=== PATIENT | female | born 1970 | race Caucasian/White ===

== ENCOUNTER 2019-02-07 11:21 | Day surgery (SDC) | payer BC ==
[~2019-02-07 11:21] MED LIST: Lactated Ringers 1,000 ML IV SCH
[2019-02-07] MEDS ORDERED: Propofol 200 MG/20 ML SDV ONE ×2 (11:25→12:43)
[2019-02-07] MEDS ORDERED: fentaNYL 100 MCG/2 ML SDV ONE (11:25)
--- NOTE | 2019-02-07 13:49 | OR ---
PREOPERATIVE DIAGNOSIS: Screening colonoscopy. POSTOPERATIVE DIAGNOSIS: Tiny high rectal nodule, probably hyperplastic polyp, removed. PROCEDURE PROPOSED: Total flexible colonoscopy. PROCEDURE DONE: Total flexible colonoscopy with cold biopsy forceps polypectomy x1. INDICATION: This is a 48-year-old female, recommended to come in for a screening colonoscopy. She denies any symptomatology. There is a questionable history of mother having had polyps, but she was not sure if they were precancerous or not. TECHNIQUE: The patient WAS brought to the endoscopy suite, placed in left lateral decubitus position. She was sedated per [employer] with propofol. The flexible video colonoscope was then passed transanally and under visualization advanced to the cecum. Examination revealed a normal ascending, transverse, descending, and sigmoid colon. In the sigmoid rectal junction, there was a tiny polyp removed with 1 bite of the cold biopsy forceps and submitted for pathologic examination. The remainder of the rectum was normal. The patient tolerated the procedure well. FINAL IMPRESSION: Tiny high rectal polyp, removed. PLAN: She will be sent a letter with pathology report. If this is a tubular adenoma, she should have a 5-year exam. If it is just a hyperplastic nodule, she could wait 10 years before she needs a repeat colonoscopy. SCM: 02/07/2019 13:02:33 MODL: 02/07/2019 13:44:14 /[id number]
[2019-02-07 13:59] VITALS: BP 130/56
--- NOTE | 2019-02-11 08:38 | LETTER ---
02/11/2019 Rosa Escobar RE: ROSA ESCOBAR : 1970 Dear Rosa: The polyp removed from your colon was a non-precancerous polyp known as a hyperplastic polyp. This therefore does not increase your risk for any future polyps or colon cancer, and I feel you can wait 10 years before you need your next colonoscopic exam. Respectfully,
== END 2019-02-07 14:35 | disposition home or self-care (01) ==
LOC: VM.SDS 11:21
PROVIDERS: ATTEND Surgery
DX: K63.5 Polyp of colon (principal); Z12.11 Encounter for screening for malignant neoplasm of colon; I10 Essential (primary) hypertension; E03.9 Hypothyroidism, unspecified; E66.9 Obesity, unspecified; Z68.39 Body mass index [BMI] 39.0-39.9, adult; Z88.8 Allergy status to other drugs, medicaments and biological substances; Z79.899 Other long term (current) drug therapy
CPT/HCPCS: J2704; J3010; J7120